=== PATIENT | male | born 1990 | race Caucasian/White ===

== ENCOUNTER 2022-06-26 17:46 | Emergency (ER) | payer MEDICAID ==
[~2022-06-26] VITALS: Ht 167.6 cm; Wt 93.7 kg
[2022-06-26 18:40] VITALS: BP 144/80
[2022-06-26] MEDS ORDERED: ACETAMINOPHEN EXTRA STRENGTH 500 MG TAB ONE (18:49)
[2022-06-26] MEDS ORDERED: ACETAMINOPHEN EXTRA STRENGTH 500 MG TAB PO ONE (18:50)
[2022-06-26] MEDS ORDERED: DEXT1LOZ11 MM (19:35)
[2022-06-26] MEDS ORDERED: BENZ200C4 PO (19:35)
[2022-06-26] MEDS ORDERED: ACET-10509 PO (19:35)
[2022-06-26] MEDS ORDERED: IBUP-2213 PO (19:35)
--- NOTE | 2022-06-26 19:37 | NUR ---
COVID+, RECEIVED REPORT FROM [facility].
[2022-06-26 20:35] VITALS: BP 144/80
--- NOTE | 2022-06-26 20:35 | NUR ---
Patient discharged with v/s stable. Written and verbal after care instructions given and explained. Patient alert, oriented and verbalized understanding of instructions. Ambulatory with steady gait. All questions addressed prior to discharge. ID band removed. Patient advised to follow up with PMD. Rx of TYLENOL, BENZONATATE, CEPACOL, IBUPROFEN given. Patient educated on indication of medication including possible reaction and side effects. Opportunity to ask questions provided and answered.
== END 2022-06-26 20:35 | disposition home or self-care (01) ==
LOC: MED 17:46
DX: U07.1 COVID-19 (principal); Z79.899 Other long term (current) drug therapy
CPT/HCPCS: 99283